=== PATIENT | male | born 1990 | race Caucasian/White ===

== ENCOUNTER 2017-10-19 16:48 | Observation (INO) ==
[2017-10-19 18:16] LABS: Basophils % 0.5 %; Eosinophils # 0.5 K/mcL (0.0-0.6); Eosinophils % 6.4 %; Hematocrit 37.7 % (37.5-50.1); Hemoglobin 12.8 g/dL (12.9-16.9); Immature Granulocytes % 0.2 % (0-4); Lymphocytes # 1.7 K/mcL (0.6-4.6); Lymphocytes % 19.9 %; Mean Corpuscular Hemoglobin 29.2 pg (28.0-33.3); Mean Corpuscular Volume 86.1 fL (83.0-100.0); Mean Platelet Volume 9.8 fL (9.4-12.4); Monocytes # 0.6 K/mcL (0.0-1.3); Monocytes % 7.2 %; Neutrophils # 5.5 K/mcL (1.6-8.9); Nucleated Red Blood Cells 0.2 /100 WBC (0); Platelet Count 207 K/mcL (140-400); Red Blood Count 4.38 M/mcL (4.19-5.50); Red Cell Distribution Width 13.2 % (11.5-14.5); Segmented Neutrophils % 65.8 %
[2017-10-19 18:23] LABS: Alanine Aminotransferase 197 Units/L (7-52); Albumin 3.9 g/dL (3.5-5.7); Albumin/Globulin Ratio 1.1 (1.1-2.2); Alkaline Phosphatase 90 Units/L (34-104); Aspartate Amino Transferase 129 Units/L (13-39); BUN/Creatinine Ratio 20 (6-26); Bilirubin,Total 0.5 mg/dL (0.3-1.0); Blood Urea Nitrogen 13 mg/dL (6-20); Carbon Dioxide 29 mEq/L (23-29); Chloride 102 mEq/L (98-107); Globulin 3.5 g/dL (2.4-3.5); Glucose 92 mg/dL (70-105); Osmolality,Calculated 280 (280-300); Potassium 3.5 mEq/L (3.5-5.1); Sodium 135 mEq/L (136-145); Total Protein 7.4 g/dL (6.4-8.9); eGFR For African Americans > 60 (> 60); eGFR For Non-African Americans > 60 (> 60)
[2017-10-19] MEDS ORDERED: Tdap (Boostrix) Vaccine 0.5 ML SYRINGE IM ONE (19:38)
--- NOTE | 2017-10-19 20:00 | Emergency Department Note ---
Disposition Clinical Impression: Rash and other nonspecific skin eruption, Joint pain, Hepatitis C Disposition: Admitted As Inpatient Condition: Fair Referrals: NONE,PCP [Primary Care Provider] - Forms: ED Satisfaction Letter Time of Disposition: 22:30 Skin/Abscess/FB HPI Chief complaint: ED Skin/Abscess/Foreign Body Stated complaint: Bilateral leg rash & joint pain all over body Time Seen by Provider: 10/19/17 19:07 Source: patient Limitations: no limitations Nursing Notes Reviewed: Yes Vital Signs Reviewed: Yes HPI Narrative: 27-year-old male with Hep C diagnosed last year presenting with bilateral regular rash that began 2 days prior to presentation. The day prior to noticing rash, patient states he was working in his backyard after which he removed several ticks from all over his body[place] Associated symptoms include diffuse joint stiffness, erythema, and beginning yesterday numbness in dorsal left foot. Yesterday noticed an ulcer in his left inner ankle. Endorses progressive swelling since onset. Worsening factors: walking. Improving factor: None. Patient saw PCP at onset of rash, a which point doxycycline 100 mg was prescribed and hydroxyzine for pruritus. Patient has not seen any relief since starting antibiotics. Endorses intermittent chills. Patient's girlfriend and mother, did a full skin exam per patient, and did not notice a rash or target-like lesion. Patient on Suboxone. Denies current illicit drug use. Denies alcohol use. Home Medications Medication Instructions Recorded Confirmed Buprenorphine HCl/Naloxone HCl 1 tab SL 0900,1800 10/19/17 10/19/17 [Buprenorphin-Naloxon 8-2 mg Sl] Ibuprofen [Motrin] 600 mg PO QID PRN 10/19/17 10/19/17 SUMAtriptan Succinate [Imitrex] 100 mg PO DAILY PRN 10/19/17 10/19/17 Allergies Allergy/AdvReac Type Severity Reaction Status Date / Time No Known Allergies Allergy Verified 10/19/17 22:42 Constitutional: Reports: as per HPI, chills, weakness (generalized ). Denies: fever Cardiovascular: Reports: as per HPI, edema. Denies: chest pain, palpitations Respiratory: Denies: dyspnea, wheezes Gastrointestinal: Denies: abdominal pain, nausea, vomiting Genitourinary: Denies: urgency, dysuria, frequency, hematuria Musculoskeletal: Reports: neck pain, joint swelling, arthralgia, myalgia Integumentary: Reports: as per HPI. Denies: rash, pruritus Neurological: Reports: as per HPI, weakness, numbness, abnormal gait (Antalgic gait) Endocrine: Reports: as per HPI, fatigue Hematological/Lymphatic: Denies: easy bleeding Past Medical History - Past Medical History Source: patient Medical history: Reports: hepatitis (Hepatitis C ) Psychiatric history: Reports: no psych history - Social History Smoking Status: Current every day smoker Smokeless Tobacco Status: No Alcohol use: Reports: none Drug use: Reports: opiates, IV Drug Use Physical Exam - General Limitations: no limitations General appearance: alert, in no apparent distress - Neck Neck exam: Present: lymphadenopathy (R anterior cervical ) - Chest Chest inspection: Absent: symmetric chest wall rise, tenderness, rash - Respiratory Respiratory exam: Present: normal lung sounds bilaterally. Absent: respiratory distress, wheezes - Cardiovascular Cardiovascular exam: Present: regular rate, normal rhythm, +S1, +S2 - Abdominal Exam Abdominal exam: Present: soft, Non-Tender, other (No rash ). Absent: distention , guarding, rebound - Extremities Exam Extremities exam: Present: other (Numerous petechiae on the knee, progressing to non-palpable, non-blanching skin lesions. Non-bleeding Ulcer near L medial malleolus fracture. Dorsalis pedis detected via Doppler b/l. ) - Expanded Lower Extremity Exam Gait: antalgic - Neurological Exam Neurological exam: Present: alert, oriented X3, reflexes normal (patellar) - Psychiatric Psychiatric exam: Present: normal affect Course - Reevaluation(s) Reevaluation #1: 21:00 - Patient resting comfortably. Discussed current plan for evaluation. Patient amenable to plan. Reevaluation #2: 21:45 - Dr. Aguilar re-evaluating patient, patient amenable to consideration of hospitalization. - Consultations Consultation #1: 22:30 - Discussed case with hospitalist. Dr. Hernández accepts admission. Recommends coverage with IV doxycline. No Vancomyin at this time. Vital Signs Temperature 98.3 F 10/19/17 17:08 Pulse Rate 85 10/19/17 17:08 Respiratory Rate 20 10/19/17 17:08 Blood Pressure 117/74 10/19/17 17:08 O2 Sat by Pulse Oximetry 100 10/19/17 17:08 Temperature 98.3 F 10/19/17 17:08 Pulse Rate 85 10/19/17 22:11 Respiratory Rate 16 10/19/17 22:11 Blood Pressure 129/75 10/19/17 22:11 O2 Sat by Pulse Oximetry 99 10/19/17 22:11 Oxygen Delivery Oxygen Delivery Room Air Skin/Abscess/Foreign Body - MDM Narrative Medical decision making narrative: Is a 27-year-old male with a past medical history of hepatitis C diagnosed last year presenting with onset of bilateral erythematous skin lesions in lower extremities 2 days ago. Endorses associated symptom of joint pain and swelling , rendering him unable to walk without significant discomfort. Patient does endorse a history of multiple tick removals (3 days prior to presentation). VSS. On exam right anterior neck lymphadenopathy, the rash appears to be limited to the legs and remarkable for numerous petechiae on the upper knee, coalescing non-blanching, non-palpable skin lesion. Based on patient's history this is possibly a vasculitis associated with hepatitis C versus tickborne disorder vs. drug-induced eruption. Ordered serologies for tickborne disorders and viral hepatitis panel pending. Rash and Joint involvement affecting ambulation concerning. Will call hospitalist for admission. - Lab Data Lab results reviewed: Yes I reviewed the patient's lab results. Result diagrams: 10/19/17 17:42 10/19/17 17:42 Lab Results 10/19/17 10/19/17 10/19/17 Range/Units 17:42 17:42 17:42 WBC 8.3 (4.3-11.1) K/mcL RBC 4.38 (4.19-5.50) M/mcL Hgb 12.8 L (12.9-16.9) g/dL Hct 37.7 (37.5-50.1) % MCV 86.1 (83.0-100.0) fL MCH 29.2 (28.0-33.3) pg MCHC 34.0 (31.6-35.5) g/dL RDW 13.2 (11.5-14.5) % Plt Count 207 (140-400) K/mcL MPV 9.8 (9.4-12.4) fL Immature Gran % 0.2 (0-4) % Seg Neutrophils % 65.8 % Lymphocytes % 19.9 % Monocytes % 7.2 % Eosinophils % 6.4 % Basophils % 0.5 % Neutrophils # 5.5 (1.6-8.9) K/mcL Lymphocytes # 1.7 (0.6-4.6) K/mcL Monocytes # 0.6 (0.0-1.3) K/mcL Eosinophils # 0.5 (0.0-0.6) K/mcL Basophils # 0.0 (0.0-0.2) K/mcL Nucleated RBCs/100 WBC 0.2 H (0) /100 WBC ESR 34 H (0-10) mm/hr PT (9.4-12.1) Seconds INR Sodium 135 L (136-145) mEq/L Potassium 3.5 (3.5-5.1) mEq/L Chloride 102 (98-107) mEq/L Carbon Dioxide 29 (23-29) mEq/L BUN 13 (6-20) mg/dL Creatinine 0.65 L (0.70-1.30) mg/dL Est GFR ( Amer) > 60 (> 60) Est GFR (Non-Af Amer) > 60 (> 60) BUN/Creatinine Ratio 20 (6-26) Glucose 92 (70-105) mg/dL Calculated Osmolality 280 (280-300) Calcium 9.0 (8.6-10.3) mg/dL Total Bilirubin 0.5 (0.3-1.0) mg/dL Direct Bilirubin 0.1 (0.0-0.2) mg/dL Indirect Bilirubin 0.4 (0.0-1.2) mg/dL AST 129 H (13-39) Units/L ALT 197 H (7-52) Units/L Alkaline Phosphatase 90 (34-104) Units/L C-Reactive Protein 107 H (Less than 10) mg/L Serum Total Protein 7.4 (6.4-8.9) g/dL Albumin 3.9 (3.5-5.7) g/dL Globulin 3.5 (2.4-3.5) g/dL Albumin/Globulin Ratio 1.1 (1.1-2.2) 10/19/17 Range/Units 20:07 WBC (4.3-11.1) K/mcL RBC (4.19-5.50) M/mcL Hgb (12.9-16.9) g/dL Hct (37.5-50.1) % MCV (83.0-100.0) fL MCH (28.0-33.3) pg MCHC (31.6-35.5) g/dL RDW (11.5-14.5) % Plt Count (140-400) K/mcL MPV (9.4-12.4) fL Immature Gran % (0-4) % Seg Neutrophils % % Lymphocytes % % Monocytes % % Eosinophils % % Basophils % % Neutrophils # (1.6-8.9) K/mcL Lymphocytes # (0.6-4.6) K/mcL Monocytes # (0.0-1.3) K/mcL Eosinophils # (0.0-0.6) K/mcL Basophils # (0.0-0.2) K/mcL Nucleated RBCs/100 WBC (0) /100 WBC ESR (0-10) mm/hr PT 12.6 H (9.4-12.1) Seconds INR 1.2 Sodium (136-145) mEq/L Potassium (3.5-5.1) mEq/L Chloride (98-107) mEq/L Carbon Dioxide (23-29) mEq/L BUN (6-20) mg/dL Creatinine (0.70-1.30) mg/dL Est GFR ( Amer) (> 60) Est GFR (Non-Af Amer) (> 60) BUN/Creatinine Ratio (6-26) Glucose (70-105) mg/dL Calculated Osmolality (280-300) Calcium (8.6-10.3) mg/dL Total Bilirubin (0.3-1.0) mg/dL Direct Bilirubin (0.0-0.2) mg/dL Indirect Bilirubin (0.0-1.2) mg/dL AST (13-39) Units/L ALT (7-52) Units/L Alkaline Phosphatase (34-104) Units/L C-Reactive Protein (Less than 10) mg/L Serum Total Protein (6.4-8.9) g/dL Albumin (3.5-5.7) g/dL Globulin (2.4-3.5) g/dL Albumin/Globulin Ratio (1.1-2.2) - Radiology Data Radiology results reviewed: Yes I reviewed the patient's radiology results. Impressions Knee X-Ray 10/19/17 21:42 IMPRESSION: Normal appearing knees D/ / Preet Vines MD / Preet Vnies MD Interpreting Provider: Preet Vines MD - EKG Data EKG attestation: Yes I reviewed and interpreted this EKG. EKG results narrative: 20:08:08. Sinus rhythm. Incomplete right bundle-branch block. KS interval 160. QRS duration 106. QT/QTc 371/406. Reviewed with attending.
[2017-10-19 20:06] LABS: Bilirubin,Direct 0.1 mg/dL (0.0-0.2); Bilirubin,Indirect 0.4 mg/dL (0.0-1.2)
[2017-10-19 20:33] LABS: INR 1.2; Prothrombin Time 12.6 Seconds (9.4-12.1)
[2017-10-19] MEDS ORDERED: methylPREDNISolone 125 MG/2 ML VIAL IVP ONE (21:50)
[2017-10-19 22:01] LABS: C-Reactive Protein 107 mg/L (Less than 10)
[2017-10-19] MEDS ORDERED: Doxycycline 100 MG in 0.9 % Sodium Chloride Mini Bag 100 ML IVPB ONE (22:30)
--- NOTE | 2017-10-19 22:35 | Emergency Department Note ---
START Narrative - START START: I examined this patient and my medical decision-making was reviewed with the Resident Physician. I agree with the documented findings, disposition and treatment plan as described except to the extent set forth below. 27-year-old male who presented to the emergency room with concerns for lower extremity rash. Started a few days ago. Seems to be gradually getting worse and spreading proximally. He was exposed to some tics in the [place]. He was wearing jeans and boots at the time. On exam, he has diffuse vasculitic appearance involving both lower extremities that spreading proximally up just below the knees. This is non-blanchable. No documented fevers. His lab work does not show any low platelets so that would rule out any ITP, TTP. could be HSP?? or a vasculitis response from his hepatitis. it's very unclear to etiology of this. could be related to tick born illness. he has been on Doxy for past few days. will continue him on this. admit for further workup
[2017-10-19 23:01] LABS: Hepatitis A Antibody IgM Nonreactive (Nonreactive)
[2017-10-19 23:05] LABS: Hepatitis B Core IgM Reactive (Nonreactive); Hepatitis B Surface Antigen Reactive (Nonreactive); Hepatitis C Virus Antibody Reactive (Nonreactive)
--- NOTE | 2017-10-19 23:40 | Internal Med History&Physical ---
Date of Encounter: 10/19/17 Time of Encounter: 23:40 Internal Medicine - H&P: HPI Chief complaint: Bilateral lower extremity rash Admitted From: Home Plans for Post Hospital Care: Home History of present illness: Mr. Melendez is a 27 year old male with history of intravenous drug abuse in the past, patient stated last use was one year ago, chronic hepatitis C, patient is unsure if he has hepatitis B. 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 The rash is not painful, however he presented to the ER today because he developed associated ankle, knee and feet pain. He is unsure if he has had exposure to ticks. He denies hemoptysis, denies hematuria, denies hematemesis or hematochezia, he has no abdominal pain, he has no recent diarrhea, he has no respiratory symptoms. He denies family history of rheumatologic diseases. He denies photosensitive skin rash on the face, he denies prior history of chronic joint pains, he denies dry mouth or eyes, he denies oral lesions. Blood workup in the ER reveals a normal CBC, chemistry, coagulation panel ,knee x-ray is normal. Hepatitis C antibody screening is positive, hepatitis B core IgM antibodies positive, hepatitis B surface antigen is positive. Hepatitis A is negative. Patient denies active IV drug use, however, he has several track ferreira on both arms. Past Med Surg Social Fam HX - Past Medical History Medical history: hepatitis (Hepatitis C ) Psychiatric history: no psych history - Social History Smoking Status: Current every day smoker Smokeless Tobacco Status: No Alcohol use: none Drug use: opiates, IV Drug Use Internal Medicine - H&P: Meds Buprenorphine HCl/Naloxone HCl [Buprenorphin-Naloxon 8-2 mg Sl] 1 tab SL 0900, 1800 10/19/17 [History] Ibuprofen [Motrin] 600 mg PO QID PRN 10/19/17 [History] SUMAtriptan Succinate [Imitrex] 100 mg PO DAILY PRN 10/19/17 [History] 3 Allergy/AdvReac Type Severity Reaction Status Date / Time No Known Allergies Allergy Verified 10/19/17 22:42 All Systems PM: A 10-system review of systems was performed and is negative for pertinent findings except as documented above in the HPI. - Constitutional Constitutional: malaise - EENT Eyes: no change in vision, no discharge, no pain, no photophobia Ears: no ear discharge, no ear pain, no tinnitus Nose, mouth and throat: no bleeding gums, no dysphagia, no nasal discharge, no neck pain, no sore throat - Cardiovascular Cardiovascular ROS IM: no chest pain, no diaphoresis, no dyspnea, no lightheadedness, no palpitations, no syncope - Respiratory Respiratory: no cough, no dyspnea, no wheezing, no excessive phlegm production - Gastrointestinal Gastrointestinal: no abdominal pain, no diarrhea, no hematemesis, no hematochezia, no melena, no nausea, no vomiting - Musculoskeletal Musculoskeletal ROS IM: arthralgias, myalgias, no muscle weakness - Integumentary Integumentary IM: as per HPI, rash - Neurological Neurological ROS: no confusion, no convulsions, no focal weakness, no numbness, no tingling, no tremor(s) - Hematologic/Lymphatic Hematologic/Lymphatic: no easy bruising - Constitutional Vitals: Temp Pulse Resp BP Pulse Ox 98.3 F 85 16 129/75 99 10/19/17 17:08 10/19/17 22:11 10/19/17 22:11 10/19/17 22:11 10/19/17 22:11 General appearance: Present: A&O X 3, pleasant, no acute distress - Head Head exam: Present: atraumatic - Eye Eye exam: Present: PERRL Additional comments: No conjunctival injection - ENT Additional comments: Patient has poor oral hygiene. No mouth sores. No petechiae - Neck Neck exam general surgery: Present: supple, trachea midline. Absent: lymphadenopathy - Respiratory Respiratory exam: Present: CTAB. Absent: accessory muscle use, rales, rhonchi, wheezes - Cardiovascular Cardiovascular exam: Present: RRR, +S1, +S2. Absent: diastolic murmur, gallop, rubs, systolic murmur - GI/Abdominal GI/Abdominal exam: Present: normal bowel sounds, soft, no peritoneal signs. Absent: distended, tenderness - Extremities Exam Additional comments: The patient has a diffuse pruritic painful skin rash which is symmetric in both lower extremities and extends from the feet to the thighs. There is associated warmth, ankle joint swelling, knee joint swelling, no decreased range of motion movement. The patient has what seems to be tract ferreira on both upper extremities. He has no butterfly rash. - Neurological Exam Neurological exam: Present: alert, CN II-XII intact, oriented X3, no focal deficits. Absent: pronater drift, facial droop, speech deficit - Skin Skin exam: Present: rash. Absent: petechiae, vesicles Internal Med - H&P Results - Labs CBC & Chem 7: 10/19/17 17:42 10/19/17 17:42 - Assessment and plan (1) Vasculitis Current Visit: Yes Status: Acute Assessment and plan: Patient with vasculitis of the lower extremities, without any renal, respiratory , neurologic or cardiac involvement. 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 No pulm, renal or GI involvement at this time Patient refuses further blood draws today, However, we would obtain LYNETTE, complement 3, complement 4 level, lupus level, [id number] DNA level, ANCA, cryoglobulin levels in the morning. We will repeat his chemistry and CBC. Platelet count is within normal limit. Continue Solu-Medrol 125 mg every 8 hours. Rheumatology evaluation- Day team [place]. [place] to [place] ER he is not sure he did not have exposure to insect or tick bites. He is on doxycycline from home, will continue the same. Serology for tick-borne illnesses sent from ER, continue to follow (2) Hepatitis C Current Visit: Yes Status: Chronic Assessment and plan: Known history of hepatitis C due to IV drug use. New hepatitis B surface antigen and IgM antibody positivity, discomfort be due to cryoglobulins. Continue home dose of Suboxone Rheumatology evaluation. Qualifiers: Viral hepatitis chronicity: chronic Hepatic coma status: without hepatic coma Qualified Code(s): B18.2 - Chronic viral hepatitis C (3) Hepatitis B Current Visit: Yes Status: Chronic Assessment and plan: As above Qualifiers: Viral hepatitis chronicity: chronic Hepatic coma status: without hepatic coma Hepatitis delta agent presence: without delta-agent Qualified Code(s): B18.1 - Chronic viral hepatitis B without delta-agent - Time Spent With Patient Total time spent is greater than 50% in coordination of care (as documented) at patient's floor/unit and/or counseling patient:
[2017-10-19] MEDS ORDERED: Acetaminophen 325 MG TABLET PO PRN (23:45)
[2017-10-19] MEDS ORDERED: *HR* OxyCODONE Immed Rel 5 MG TABLET PO PRN (23:45)
[2017-10-19] MEDS ORDERED: Naloxone 0.4 MG/ML INJ IVP PRN (23:45)
[2017-10-19] MEDS ORDERED: *HR* HYDROcodone/Acet 5/325 mg TABLET PO PRN (23:45)
[2017-10-20] MEDS ORDERED: SUMAtriptan succinate 50 MG TABLET PO PRN (00:10)
[2017-10-20 05:00] LABS: Basophils % 0.2 %; Eosinophils % 0.3 %; Hematocrit 33.5 % (37.5-50.1); Hemoglobin 11.7 g/dL (12.9-16.9); Immature Granulocytes % 0.5 % (0-4); Lymphocytes # 0.6 K/mcL (0.6-4.6); Lymphocytes % 9.5 %; Mean Corpuscular HGB Conc 34.9 g/dL (31.6-35.5); Mean Corpuscular Hemoglobin 29.5 pg (28.0-33.3); Mean Corpuscular Volume 84.4 fL (83.0-100.0); Mean Platelet Volume 10.2 fL (9.4-12.4); Monocytes # 0.1 K/mcL (0.0-1.3); Monocytes % 1.5 %; Neutrophils # 5.2 K/mcL (1.6-8.9); Platelet Count 190 K/mcL (140-400); Red Blood Count 3.97 M/mcL (4.19-5.50); Red Cell Distribution Width 13.3 % (11.5-14.5)
[2017-10-20] MEDS: methylPREDNISolone 125 MG/2 ML VIAL IVP SCH ×2 (05:12→11:20)
[2017-10-20 05:27] LABS: BUN/Creatinine Ratio 23 (6-26); Blood Urea Nitrogen 14 mg/dL (6-20); Calcium 9.1 mg/dL (8.6-10.3); Carbon Dioxide 25 mEq/L (23-29); Chloride 106 mEq/L (98-107); Glucose 151 mg/dL (70-105); Osmolality,Calculated 281 (280-300); Potassium 3.7 mEq/L (3.5-5.1); Sodium 134 mEq/L (136-145); eGFR For African Americans > 60 (> 60); eGFR For Non-African Americans > 60 (> 60)
[2017-10-20] MEDS ORDERED: *HR* Enoxaparin 40 MG/0.4 ML SYRINGE SQ SCH (06:00)
[2017-10-20 06:10] LABS: Amphetamine Screen,Urine Positive ng/mL (Cutoff=1000); Barbiturate Screen,Urine Negative ng/mL (Cutoff=200); Benzodiazepines Screen,Urine Negative ng/mL (Cutoff=200); Cannabinoid Screen,Urine Negative ng/mL (Cutoff = 50); Cocaine Screen,Urine Negative ng/mL (Cutoff= 300); Opiate Screen,Urine Negative ng/mL (Cutoff=300); Phencyclidine Screen,Urine Negative ng/mL (Cutoff=25)
[2017-10-20 07:15] LABS: Bilirubin,Urine Negative (Negative); Blood,Urine Negative (Negative); Clarity,Urine Clear (Clear); Color,Urine Dark Yellow (Yellow); Glucose,Urine (UA) Normal (Normal); Ketones,Urine Negative (Negative); Leukocyte Esterase,Urine Negative (Negative); Nitrite,Urine Negative (Negative); Protein,Urine Trace mg/dL (Neg-Trace); Specific Gravity,Urine 1.028 (1.010-1.025); Urobilinogen,Urine Normal (Normal)
[2017-10-20 07:18] LABS: Bacteria,Urine None Seen per hpf (None-Few); Hyaline Casts,Urine None Seen per lpf (None-Few); RBC,Urine 0-3 per hpf (0-3); Squamous Epithelial Cell,Urine Few per lpf (None-Few); WBC,Urine 0-3 per hpf (0-3)
[2017-10-20] MEDS ORDERED: Doxycycline 100 MG CAPSULE PO SCH (09:00)
[2017-10-20] MEDS ORDERED: Buprenorphine Hcl/Naloxone Hcl 8-2 MG SL SCH (09:00)
[2017-10-20 11:06] VITALS: BP 110/67
--- NOTE | 2017-10-20 12:34 | Rheumatology Consult Note ---
Date of Encounter: 10/20/17 Time of Encounter: 12:15 Rheumatology Assess and Plan (1) Purpura Current Visit: Yes Status: Acute Bilateral lower extremity purpura new in onset with associated inflammatory arthritis. His arthritis is already improving with steroids. It is reassuring that creatinine is normal, UA without RBCs or protein and no signs of end-organ dysfunction from vasculitic activity. - Blood cultures pending - Infectious workup has revealed hepatitis C and hepatitis B positivity. Given the HBVsAg and core IgM, this may be an acute hepatitis B infection. - Will add PCR of the viruses. Add HIV viral studies. - Autoimmune studies ordered by hospitalist pending; will add RF and CCP. - I would recommend a chest x-ray - At this time, this could be a form of cryoglobulinemia from the above viral infections. Will await PCR and cryoglobulins which will further help with diagnosis. - Corticosteroids at this time are essentially treating inflammatory arthritis symptoms though would be cautious at retirement high dose use given not entirely knowing what we are treating especially given possibility of active hepatitis B. His arthritis was debilitating, he reports and since he is improving, would switch to prednisone 40 mg po daily and taper step-torres over the next 2 weeks pending nothing shows up from infectious workup. - This patient is also asking to be discharged as soon as possible, but given the multiple concerns for infection, it would be ideal to get a preliminary read on blood cultures prior to discharge. - Discussed the case with the hospitalist. (2) Inflammatory arthritis Current Visit: Yes Status: Acute (3) Hepatitis B core antibody positive Current Visit: Yes Status: Acute Suspect acute infection. LFTs abnormal; bili and INR normal which is reassuring. Woudl recommend close follow-up with labs and PCP. Will add PCR studies of viral hepatitis. Would recommend outpatient gastrointestinal consultation after discharge (4) Hepatitis B surface antigen positive Current Visit: Yes Status: Acute (5) Hepatitis C antibody positive in blood Current Visit: Yes Status: Acute Rheumatology HPI Consult date: 10/20/17 Requesting physician: Shahram Hernández Consult reason: Rash concern for vasculitis Chief complaint: Joint pain, rash History of present illness: Mr. Melendez is a 27 year old male with PMH of hepatiti C, drug use who presents to [facility] with joint pain and a rash. This patient reports that 2-3 days ago he was standing for a prolonged period of time and developed a new rash from his feet to up beyond his knee. He reports the rash did not hurt, it did not itch and he did not have any open sores. No previous occurrences. He started having swelling and pain in his ankles. It is moderate to severe, worse with walking and improved with rest. He noticed he had swelling in the joints of his hands and in his knees. This was new and he has never had swelling like this before. He reports he has known hepatitis C. He was tested for hepatitis B; his core IgM and surface antigen is positive. He denies any new sexual contact and states he has not used drugs in a while. He denies shortness of breath, chest pain, oral ulcerations, red/painful eye, hemoptysis, epistaxis, fevers, abdominal pain, blood bowel movements, diarrhea, oral ulcerations, nausea, vomiting. He was started on solumedrol and reports relief afterwards. Past Med Surg Social Fam HX - Past Medical History Medical history: hepatitis (Hepatitis C ) Psychiatric history: no psych history - Social History Smoking Status: Current every day smoker Smokeless Tobacco Status: No Alcohol use: none Drug use: opiates, IV Drug Use - Family History Mother Living Status: Still Living Hx Family Respiratory Disorders: Yes (copd) Medications and Allergies Buprenorphine HCl/Naloxone HCl [Buprenorphin-Naloxon 8-2 mg Sl] 1 tab SL 0900, 1800 10/19/17 [History] Ibuprofen [Motrin] 600 mg PO QID PRN 10/19/17 [History] SUMAtriptan Succinate [Imitrex] 100 mg PO DAILY PRN 10/19/17 [History] 3 Allergy/AdvReac Type Severity Reaction Status Date / Time No Known Allergies Allergy Verified 10/19/17 22:42 All Systems Review: The remainder of the systems were reviewed and are negative Review of Systems: General - no recent weight loss, weight gain, fatigue or fevers Eyes - no redness, loss of vision, dryness/itching/foreign body sensation ENT - no dryness of mouth, oral ulcerations, nasal ulcerations, sore throat, frequent cavities, jaw claudication, tinnitus, or vertigo Cardiovascular - no chest pain, palpitations, lightheadedness, syncope or arm/ leg claudication Respiratory - no shortness of breath, difficulty breathing at night, pleuritic chest pain and no cough Gastrointestinal - no nausea, vomiting, diarrhea, bloating, black/tarry stools, blood in stools or heartburn Genitourinary - no pain on urination, hematuria, frothy urine or ulcerations. Musculoskeletal - + morning stiffness, + joint swelling, + muscle aches, no tendon/ligament swelling or tenderness and no inflammatory back pain Integumentary - no easy bruising, + lower extremity rash, no hives, photosensitivity, skin thickening, alopecia, color changes of hands. No tattoos Neurological - no muscle weakness or paresthesias Hematologic/lymphatic - no tender or swollen glands, history of anemia or blood clots Rheumatology Exam Vital Signs, Last 4 Hours Temp Pulse Resp BP Pulse Ox 10/20/17 11:05 97.8 F 77 16 110/67 98 10/20/17 09:00 97 Exam: General - Alert and oriented x 3, no acute distress and appears comfortable HEENT - Conjunctiva clear, no alopecia or hair thinning, no facial rash, no nasal or oral mucosal lesions/ulcerations Heme/Lymph - No cervical or supraclavicular lymph node enlargement or tenderness. No pallor. Heart - S1S2 regular in rate and rhythm without murmurs, clicks or rubs. No peripheral edema. Lungs - Unlabored breathing, clear to auscultation bilaterally without wheezes or crackles; no decrease in chest expansion Abdomen - Soft, nontender, nondistended. Unable to palpate any hepatosplenomegaly Skin - No clubbing, nodules, tophi, psoriasis, malar rash, telangiectasias, sclerodactyly, nail pitting, onycholysis, digital ulcers. Nonblanching rash of lower extremities that is nontender. Neurological - Gait not assess as in bed, muscle strength 5/5 in all four extremities Musculoskeletal - Full ROM, + synovitis to left PIP 3,4 and bilateral ankle effusions noted, no muscle tenderpoints. Rheumatology Results 10/20/17 04:31 10/20/17 04:31 All other labs normal. Consult Discharge Plan - Plan Referrals: NONE,PCP [Primary Care Provider] -
[2017-10-20 13:48] LABS: Rheumatoid Factor 37 IU/mL (Less than 14)
--- NOTE | 2017-10-20 19:10 | Discharge Summary ---
Orders not resulted at time of discharge: Pending orders 10/20/17 04:31 LYNETTE IgG EDWAYNE rflx IFA AM 0400 Complement Component 3 Stat Complement Component 4 Stat Cryoglobulin AM 0400 MPO/PR3 (ANCA) Antibodies Stat 10/20/17 13:14 CCP IgG Routine HIV-1&2 Antibody & p24 Ag Routine Hepatitis B Virus Quant PCR Routine Hepatitis C Qnt Reflx Genotype Routine Rheumatoid Factor Routine Date of Encounter: 10/20/17 Time of Encounter: 16:00 - Discharge Diagnosis (1) Hepatitis C Priority: Primary Status: Chronic Qualifiers: Viral hepatitis chronicity: chronic Hepatic coma status: without hepatic coma Qualified Code(s): B18.2 - Chronic viral hepatitis C (2) Vasculitis Priority: Primary Status: Acute (3) Hepatitis B Priority: Primary Status: Chronic Qualifiers: Viral hepatitis chronicity: chronic Hepatic coma status: without hepatic coma Hepatitis delta agent presence: without delta-agent Qualified Code(s): B18.1 - Chronic viral hepatitis B without delta-agent Hospital course: Mr. Melendez is a 27 year old male history of intravenous drug use as well as chronic hepatitis C recently diagnosed with hepatitis B. Patient had been experiencing 2 days of a red rash on his feet bilaterally spreading up toward his knees. The rash is not painful however he has been experiencing associated swelling of ankles knees and feet. Having difficulty ambulating. He has been working outside and is unsure if he has been exposed to ticks. ER workup did reveal normal CBC chemistry coags hep C antibody is positive hep B core IgM antibody was positive hepatitis B surface antigen is positive hepatitis A is negative. He denies any recent IV drug use however mating hospitalist noticed tract ferreira. Blood cultures, autoimmune studies are pending concern for cryoglobulinemia vasculitis rheumatology was consulted-patient requesting to leave-expressed concerns for infection awaiting blood culture results-also would like GI to see patient since I feel he is not to follow-up as an outpatient. Nursing staff informed me that patient is leaving AGAINST MEDICAL ADVICE, went to the patient's room however he had already left - Time Spent with Patient Total time spent providing and/or coordinating discharge services: - Discharge Medications Home Medications: Buprenorphine HCl/Naloxone HCl [Buprenorphin-Naloxon 8-2 mg Sl] 1 tab SL 0900, 1800 10/19/17 [History] Ibuprofen [Motrin] 600 mg PO QID PRN 10/19/17 [History] SUMAtriptan Succinate [Imitrex] 100 mg PO DAILY PRN 10/19/17 [History] Allergies/Adverse Reactions: 3 Allergy/AdvReac Type Severity Reaction Status Date / Time No Known Allergies Allergy Verified 10/19/17 22:42 Date of admission: 10/19/17 23:12 Primary care physician: PCP NONE Consults: 10/19/17 23:50 Consult to Rheumatology [CONS] Routine Consulting Provider: Kevin Higuera Reason for Consult: Vasculitis Call Completed: Yes 10/20/17 14:51 Consult to Gastroenterology [CONS] Routine Consulting Provider: Gastroenterology Flavia Reason for Consult: Hep B core antibody positive, Hep C elevated liver enzymes Time Notified: 14:53 Call Completed: Yes Anticipated date of discharge: 10/20/17 - Constitutional Vitals: Temp Pulse Resp BP Pulse Ox 97.8 F 77 16 110/67 98 10/20/17 11:05 10/20/17 11:05 10/20/17 11:05 10/20/17 11:05 10/20/17 11:05 General appearance: Present: A&O X 3, pleasant, no acute distress - Patient Status Disposition: Left Against Medical Advice Condition: Fair - Discharge Instructions Follow Up With: Kevin Higuera DO [Partnered Physician] - 11/04/17 3:45 pm NONE,PCP [Primary Care Provider] -
[2017-10-21 03:37] LABS: HIV-1&2 Antibody & p24 Ag Nonreactive (Nonreactive)
[2017-10-21 18:58] LABS: APTT (LE Anticoag) 37 sec (32-48); Diluted Russell Viper Venom 27 sec (33-44); PT (LE-Anticoag) 13.7 sec (12.0-15.5)
[2017-10-22 09:53] LABS: Myeloperoxidase Ab 1 AU/mL (0-19); Serine Protease-3 Antibody 5 AU/mL (0-19)
[2017-10-22 09:54] LABS: Enterovirus RNA Qual (PCR) NOT DETECTED
[2017-10-22 10:53] LABS: ANA IgG by ELISA NONE DETECTED (None Detected)
[2017-10-22 10:54] LABS: Complement Component 3 70 mg/dL (88-201); Complement Component 4 2 mg/dL (10-40)
[2017-10-22 13:46] LABS: HCV Quant Interpretation DETECTED (Not Detected)
[2017-10-23 07:19] LABS: HBV Quant Interpretation DETECTED (Not Detected); HBV Quant Log by PCR >8.2 log IU
--- NOTE | 2017-10-23 16:57 | Electrocardiograph Report ---
[place] [id number] Test Date: 2017-10-19 Pat Name: Abdirashid Melendez Department: 102 Room: 3B38 Gender: M Spa Coordinator: Kaylee : 1990 Requested By: Natasha Prescott Order Number: [id number] Reading MD: Tanja Olson Measurements Intervals [place] Rate: 79 P: 62 MS: 160 QRS: 67 QRSD: 106 T: 48 QT: 371 QTc: 406 Interpretive Statements SINUS RHYTHM INCOMPLETE RIGHT BUNDLE BRANCH BLOCK [90+ ms QRS DURATION, TERMINAL R IN V1/V2, 40+ ms S IN I/aVL/V4/V5/V6] Electronically Signed On 10-23-2017 16:56:01 EDT by Tanja Olson
[2017-10-26 20:42] LABS: Echovirus Type 11 Ab 1:40 (<1:10); Echovirus Type 6 Ab <1:10 (<1:10); Echovirus Type 7 Ab <1:10 (<1:10); Echovirus Type 9 Ab 1:40 (<1:10)
[2017-10-27 09:37] LABS: Echovirus Type 30 Ab 1:20 (<1:10)
== END 2017-10-20 15:38 | disposition left against medical advice (07) ==
LOC: EMEROO 16:48 → 3BNU 16:48
PROVIDERS: ADMIT Internal Medicine; ATTEND Internal Medicine